=== PATIENT | female | born 1970 | race Caucasian/White ===

== ENCOUNTER 2018-04-14 04:23 | Emergency (ER) | payer MEDICARE, MEDICAID ==
[~2018-04-14] VITALS: Ht 170.2 cm; Wt 77.0 kg
[2018-04-14] MEDS ORDERED: ketorolac trometh inj. 60 MG/2 ML VIAL IM ONE (04:40)
[2018-04-14 05:17] VITALS: BP 119/68
== END 2018-04-14 05:21 | disposition home or self-care (01) ==
LOC: ER 04:24
DX: M48.00 Spinal stenosis, site unspecified (principal); M54.5 Low back pain; G89.29 Other chronic pain; Z98.890 Other specified postprocedural states; Z56.0 Unemployment, unspecified; Z88.1 Allergy status to other antibiotic agents
CPT/HCPCS: 72110; 96372; 99283; J1885

== ENCOUNTER 2018-09-13 13:03 | Emergency (ER) | payer MEDICARE, MEDICAID ==
[~2018-09-13] VITALS: Ht 170.2 cm; Wt 77.3 kg
[2018-09-13 13:11] VITALS: BP 146/101
== END 2018-09-13 14:11 | disposition home or self-care (01) ==
LOC: ER 13:04
DX: S00.03XA Contusion of scalp, initial encounter (principal); G89.29 Other chronic pain; Z88.2 Allergy status to sulfonamides; Z56.0 Unemployment, unspecified; W22.8XXA Striking against or struck by other objects, initial encounter; Y93.89 Activity, other specified; Y92.89 Other specified places as the place of occurrence of the external cause; Y99.8 Other external cause status
CPT/HCPCS: 99281

== ENCOUNTER 2020-06-13 17:04 | Emergency (ER) | payer MEDICARE, MEDICAID ==
[~2020-06-13] VITALS: Ht 170.2 cm; Wt 56.8 kg
[~2020-06-13 17:04] MED LIST: OMEP40CA13 PO
--- NOTE | 2020-06-13 17:43 | NUR ---
PATIENT IS TALKING VERY RAPIDLY. HISTORY UNCLEAR. STATES SHE WAS SEEN IN [place]ARCH AT [facility]. SHE FELT UNSAFE AT HOME AND LEFT THIS AFTERNOON TO GO TO A WOMENS REFUGE. SHE COULDN'T FIND THE RETIREMENT AND THEN HAD A GUSH COME OUT OF HER VAGINA. SMALL AMOUNT OF DRIED MUCOUS/MANCIA COLORED DISCHARGE NOTED ON UNDERWEAR, NO BLOOD SEEN. PATIENT IS ALSO COMPLAINING OF ABDOMINAL PAIN AND SHOULDER PAIN.
[2020-06-13] MEDS ORDERED: pantoprazole 40mg Tablet.DR PO ONE (18:10)
--- NOTE | 2020-06-13 18:17 | NUR ---
REACHED OUT TO [facility] FOR HOUSING ASSISTANCE PER PATIENTS REQUEST.
[2020-06-13 18:33] LABS: ALANINE AMINOTRANSFERASE 14 U/L (12-78); ALBUMIN 3.7 G/DL (3.4-5.0); ALKALINE PHOSPHATASE 94 IU/L (46-116); ANION GAP 11 (8-16); ASPARTATE AMINO TRANSFERASE 19 U/L (10-37); BILIRUBIN,TOTAL 0.3 MG/DL (0.1-1.0); BLOOD UREA NITROGEN 16 MG/DL (7-18); BUN/CREATININE RATIO 21.6 (6.6-38.0); CALCIUM 8.9 MG/DL (8.5-10.1); CHLORIDE 105 MMOL/L (99-107); CREATININE 0.74 MG/DL (0.40-0.90); ETHANOL < 0.010 GM/DL (0.0-0.010); GLUCOSE 109 MG/DL (70-104); LIPASE 58 U/L (73-393); POTASSIUM 3.4 MMOL/L (3.5-5.1); SODIUM 140 MMOL/L (135-145); TOTAL CARBON DIOXIDE 24.2 MMOL/L (24-32); TOTAL PROTEIN 7.3 G/DL (6.4-8.2); eGFR 83 ML/MIN
[2020-06-13 18:35] LABS: BASOPHILS # (AUTO) 0.1 X10'3 (0-0.2); BASOPHILS % (AUTO) 1.1 % (0-1); EOSINOPHILS # (AUTO) 0.1 X10'3 (0-0.9); EOSINOPHILS % (AUTO) 0.9 % (0-6); HEMATOCRIT 31.8 % (35.0-45.0); HEMOGLOBIN 9.9 g/dl (12.0-16.0); LYMPHOCYTES # (AUTO) 1.8 X10'3 (1.1-4.8); LYMPHOCYTES % (AUTO) 21.2 % (21-51); MEAN CORPUSCULAR HEMOGLOBIN 22.9 PG (27.0-31.0); MEAN CORPUSCULAR HGB CONC 31.2 g/dL (33.0-36.5); MEAN CORPUSCULAR VOLUME 73.5 FL (78-98); MONOCYTES # (AUTO) 0.7 X10'3 (0-0.9); MONOCYTES % (AUTO) 8.4 % (2-12); NEUTROPHILS # (AUTO) 5.8 X10'3 (1.8-7.7); NEUTROPHILS % (AUTO) 68.4 % (42-75); PLATELET COUNT 434 X10'3 (140-440); RED BLOOD COUNT 4.32 X10'6 (4.20-5.60); RED CELL DISTRIBUTION WIDTH 18.5 % (11.5-14.5); WHITE BLOOD COUNT 8.5 X10'3 (4.5-11.0)
[2020-06-13 18:36] LABS: CLARITY,URINE SLIGHTLY CLOUDY (Clear); COLOR,URINE AMBER (Yellow); GLUCOSE, URINE NEGATIVE (Neg); KETONES,URINE 15 mg/dl (Neg); LEUKOCYTE ESTERASE ,URINE NEGATIVE (Neg); NITRITES, URINE NEGATIVE (Neg); OCCULT BLOOD,URINE NEGATIVE (Neg); PROTEIN,URINE 100 mg/dl (Neg)
[2020-06-13 18:39] LABS: UA COLLECTION TYPE CLN CATCH MIDSTREAM
[2020-06-13 18:40] LABS: URINE AMPHETAMINE SCREEN POSITIVE (Neg); URINE BARBITUATE SCREEN NEGATIVE (Neg); URINE BENZODIAZEPINES SCREEN NEGATIVE (Neg); URINE CANNABINOID SCREEN POSITIVE (Neg); URINE COCAINE SCREEN NEGATIVE (Neg); URINE METHADONE SCREEN NEGATIVE (Neg); URINE OPIATE SCREEN NEGATIVE (Neg); URINE PHENCYCLIDINE SCREEN NEGATIVE (Neg)
--- NOTE | 2020-06-13 18:43 | NUR ---
Pt. on the phone with [facility] at this time. Patient provided with privacy for this conversation.
[2020-06-13 18:48] LABS: MUCUS STRANDS MANY /LPF (Neg); SQUAMOUS EPITHELIAL CELL,UR MANY /LPF (FEW)
[2020-06-13 18:50] LABS: BACTERIA,URINE FEW /HPF (Neg); CAL OXALATE CRYSTALS 1+ /HPF (NEGATIVE); RBC,URINE NONE SEEN /HPF (0-2); WBC,URINE 0-4 /HPF (0-4)
[2020-06-13 18:51] LABS: URINE HCG NEGATIVE (NEG)
--- NOTE | 2020-06-13 19:32 | NUR ---
0Spoke with Iliana from [facility]. Per Iliana, pt. and her agreed to meet/get in touch with on Monday06/15/20 for further assistance with her case. For nikko, pt. agrees to stay at the [facility].
[2020-06-13 19:55] VITALS: BP 145/95
== END 2020-06-13 19:57 | disposition home or self-care (01) ==
LOC: ER 17:06
DX: K59.00 Constipation, unspecified (principal); R10.30 Lower abdominal pain, unspecified; R30.0 Dysuria; G89.29 Other chronic pain; F15.90 Other stimulant use, unspecified, uncomplicated; Z98.890 Other specified postprocedural states; Z56.0 Unemployment, unspecified; Z88.1 Allergy status to other antibiotic agents; Z88.8 Allergy status to other drugs, medicaments and biological substances; Z79.899 Other long term (current) drug therapy
CPT/HCPCS: 36415; 74022; 80053; 80305; 80320; 81001; 81025; 83690; 85025; 93005; 99285

== ENCOUNTER 2020-06-15 02:20 | Emergency (ER) | payer MEDICARE, MEDICAID ==
[~2020-06-15] VITALS: Ht 170.2 cm; Wt 56.8 kg
[2020-06-15] MEDS ORDERED: acetaminophen 325mg tablet PO ONE (02:55)
[2020-06-15] MEDS ORDERED: ibuprofen 200mg tablet PO ONE (02:55)
[2020-06-15] MEDS ORDERED: ondansetron 4mg rapidly disintigrating tab PO ONE (02:55)
[2020-06-15] MEDS ORDERED: LIDOcaine Viscous 15ml cup TP ONE (02:55)
[2020-06-15] MEDS ORDERED: pantoprazole 40mg Tablet.DR PO ONE (02:55)
[2020-06-15] MEDS ORDERED: mag hydrox/Alum hydrox/simeth 30ml oral suspension PO ONE (02:55)
--- NOTE | 2020-06-15 04:52 | NUR ---
Pt has appointment in the AM with a representitive for [facility]. Pt to stay in [facility] until sunrise.
[2020-06-15 06:13] VITALS: BP 120/62
== END 2020-06-15 06:20 | disposition home or self-care (01) ==
LOC: ER 02:21
DX: R10.13 Epigastric pain (principal); M79.10 Myalgia, unspecified site; R19.7 Diarrhea, unspecified; G89.29 Other chronic pain; F15.90 Other stimulant use, unspecified, uncomplicated; Z56.0 Unemployment, unspecified; Z88.2 Allergy status to sulfonamides; Z88.8 Allergy status to other drugs, medicaments and biological substances; Z79.899 Other long term (current) drug therapy
CPT/HCPCS: 99284

== ENCOUNTER 2022-05-11 18:08 | Emergency (ER) | payer MEDICARE, MEDICAID ==
[~2022-05-11] VITALS: Ht 171.4 cm; Wt 58.5 kg
[~2022-05-11 18:08] MED LIST changes: -OMEP40CA13 PO; +OMEP40CA21 PO
[2022-05-11 18:21] VITALS: BP 152/98
== END 2022-05-11 20:39 | disposition home or self-care (01) ==
LOC: ER 18:08
DX: L24.9 Irritant contact dermatitis, unspecified cause (principal); F22 Delusional disorders; G89.29 Other chronic pain; M54.50 Low back pain, unspecified; F12.90 Cannabis use, unspecified, uncomplicated; Z88.2 Allergy status to sulfonamides; Z56.0 Unemployment, unspecified
CPT/HCPCS: 99281